=== PATIENT | male | born 1945 | race Caucasian/White ===

== ENCOUNTER 2022-08-03 20:07 | Emergency (ER) | payer OTHER ==
[~2022-08-03] VITALS: Ht 167.6 cm; Wt 104.3 kg
--- NOTE | 2022-08-03 20:24 | NUR ---
Patient A/O x4. NAD noted. Refused all orders given by Dr. Lovelace (i.e. lab work, x-ray, etc.). Dr. Lovelace aware.
--- NOTE | 2022-08-03 20:30 | NUR ---
Daughter and at bedside speaking to Dr. Jarrett.
[2022-08-03] MEDS ORDERED: LIDOCAINE 1%-EPI 1:100,000 20 ML VIAL ONE (20:41)
[2022-08-03] MEDS ORDERED: LIDOCAINE 1%-EPI 1:100,000 20 ML VIAL IJ ONE (20:45)
--- NOTE | 2022-08-03 21:00 | NUR ---
Jefferyroned Dr. Lovelace during suturing of laceration.
[2022-08-03] MEDS ORDERED: TDAP DIPH,PERTUSS,TET VAC/PF 0.5 ML DISP.SYRIN IM ONE ×2 (21:15→21:20)
[2022-08-03] MEDS ORDERED: hydrALAZINE HCL 20 MG/1 ML VIAL IM ONE (21:15)
[2022-08-03] MEDS ORDERED: hydrALAZINE HCL 20 MG/1 ML VIAL ONE (21:20)
--- NOTE | 2022-08-03 22:00 | NUR ---
Patient does not wish to proceed with medical care recommended by Dr. Lovelace. Patient given information related to possible complications, up to and including , which could occur as a result of leaving the hospital at this time. Patient verbalizes understanding of risks involved due to leaving against medical advice. Patient has signed AMA form.
[2022-08-03 22:02] VITALS: BP 139/76
== END 2022-08-03 22:03 | disposition left against medical advice (07) ==
LOC: ER 20:09
DX: S01.81XA Laceration without foreign body of other part of head, initial encounter (principal); W01.190A Fall on same level from slipping, tripping and stumbling with subsequent striking against furniture, initial encounter; Y93.66 Activity, soccer; Y92.89 Other specified places as the place of occurrence of the external cause; I10 Essential (primary) hypertension; Z95.0 Presence of cardiac pacemaker
CPT/HCPCS: 99284; 90715; 90471; 12011; 93005; 96372; J0360; J3490